=== PATIENT | male | born 1955 | race Caucasian/White ===

== ENCOUNTER → 2018-11-04 10:20 | Outpatient (CLI) | payer MEDICARE ==
[2016-01-19 11:48] VITALS: BMI 27.8
[~2018-11-04 10:20] MED LIST: ATIVAN1 MG; CATAPRES0.1 MG; CELEXA20 MG; COLACE100 MG PO; HYDROCODONE-APA1 TAB; HYDROCODONE-APA1 TAB PO; METOPROLOL TART50 MG PO; ROBAXIN-750750 MG; TENORMIN25 MG; ZYLOPRIM300 MG PO
== END | disposition home or self-care (01) ==
LOC: D.RAD 10:20
DX: R10.13 Epigastric pain (principal); R11.2 Nausea with vomiting, unspecified; R13.10 Dysphagia, unspecified

== ENCOUNTER → 2018-11-13 13:30 | Outpatient (CLI) | payer MEDICARE ==
[2016-01-19 11:48] VITALS: BMI 27.8
== END | disposition home or self-care (01) ==
LOC: D.CT 13:30
DX: K22.8 Other specified diseases of esophagus (principal)

== ENCOUNTER 2018-11-18 11:58 | Day surgery (SDC) | payer MEDICARE ==
[~2018-11-18] VITALS: Ht 182.9 cm; Wt 85.3 kg
[~2018-11-18 11:58] MED LIST changes: -METOPROLOL TART50 MG PO
[2018-11-18] MEDS ORDERED: METOPROLOL TART50 MG PO (13:17)
[2018-11-18 13:23] VITALS: BP 133/80; Ht 182.9 cm; Wt 85.3 kg
[2018-11-18 13:58] LABS: HEMATOCRIT 44.3 % (42.0-54.0); HEMOGLOBIN 15.4 g/dL (13.5-17.5); MCHC 34.8 g/dL (31.0-37.0); MCV 94.9 fL (80.0-100.0); RBC 4.67 10x6/uL (4.20-6.10); RDW 13.3 % (11.5-14.5); WBC 6.1 10x3/uL (4.8-10.8)
[2018-11-18 14:06] LABS: PLATELET COUNT 96 10x3/uL (130-400)
[2018-11-18 14:48] LABS: PLATELET ESTIMATE DECREASED
--- NOTE | 2018-11-18 15:20 | NUR ---
1500-RECD TO ROOM [facility] LAB. ALERT. 1505- VOJOY IN TO REPORT FINDINGS. 1515-FULL LIQUIDS SERVED.
--- NOTE | 2018-11-18 15:42 | NUR ---
1530-IV D/C, VOIDS AND DRESSED. 1540-DISCHARGE INSTRUCTIONS REVIEWED AND D/C HOME VIA WHEELCHAIR.
--- NOTE | 2018-11-20 09:41 | OP ---
PATIENT NAME: FRANCISCO QUINTERO MEDICAL RECORD: [id number] :51 LOCATION:D.OPS ADMISSION DATE: SURGEON: MARQUISE NÚÑEZ DO DATE OF OPERATION: 11/18/2018 PROCEDURE: EGD with biopsies. 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 Previous EGD with biopsies showed atypia, but failed to prove dysplasia or adenocarcinoma. SCOPE: Olympus video gastroscope. MEDICATIONS: Propofol 350 mg IV per anesthesia. ESTIMATED BLOOD LOSS: Less than 5 mL. COMPLICATIONS: None immediate. FINDINGS: Informed consent was given. The patient was made comfortable with the above medication. After reaching an adequate level of sedation by slow IV push, the patient was placed on his left side. The endoscope was advanced under direct visualization through the mouth to the second portion of the duodenum. In the upper esophagus, there was a small single patch of heterotopic gastric mucosa. The endoscope was advanced beyond this site into the distal esophagus, where the previously identified tumor was again visualized. This tumor was approximately 4-5 cm in length. It occupies approximately 40% of the circumference of the esophagus proximally; and as you progress distally through the lesion, it is approximately 75% to 100%. The lumen is occluded approximately 95%. The tumor is very friable. Multiple cold forceps biopsies were taken along this tumor to submit for a pathologic diagnosis. 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 The endoscope was advanced beyond this tumor into the stomach. The stomach and small bowel appeared normal. The endoscope was withdrawn from the patient. The patient tolerated the procedure well and there were no immediate complications. IMPRESSIONS: 1. 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 2. 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 Multiple cold forceps biopsies were taken during this examination to submit for histopathology. PLAN AND RECOMMENDATIONS: 1. Discharge home when recovery parameters are met. 2. Follow up biopsy specimen results. 3. Maintain appointment with Dr. Simental and ancillary appointments arranged by Dr. Simental for treatment of this presumed adenocarcinoma of the distal esophagus. 4. GI is available as needed moving forward for further intervention/evaluation of this site. TRANSINT:[id number] Voice Confirmation ID: [id number] DOCUMENT ID: [id number] OPERATIVE REPORT [id number] FRANCISCO QUINTERO NATHAN A DO at 0941 CC: [id number] DICTATION DATE: 11/18/18 1451 TEST RACK OPERATOR: 11/18/18 1601 [facility] 11/18/[address] [facility] [address] [place] [id number]
== END 2018-11-18 15:40 | disposition home or self-care (01) ==
LOC: D.OPS 11:58
PROVIDERS: Internal Medicine Gastroenterology
DX: C15.5 Malignant neoplasm of lower third of esophagus (principal); Z01.812 Encounter for preprocedural laboratory examination